=== PATIENT | female | born 1975 | race Caucasian/White ===

== ENCOUNTER 2019-03-31 03:15 | Emergency (ER) | payer OTHER ==
[~2019-03-31] VITALS: Ht 160 cm; Wt 74.8 kg
[2019-03-31] MEDS ORDERED: LISINOPRIL2.5 MG PO (03:26)
[2019-03-31] MEDS ORDERED: OMEPRAZOLE 20 M20 M1 PO (03:27)
[2019-03-31] MEDS ORDERED: KAPSPARGO SPRIN50 MG PO (03:27)
[2019-03-31] MEDS ORDERED: DEPO-ESTRAD5 MG/1 ML IM (03:28)
[2019-03-31 04:03] LABS: HEMATOCRIT 49.3 % (37.0-47.0); HEMOGLOBIN 16.7 gm/dL (12.0-15.0); MCH 31.5 pg (26.0-34.0); MCV 92.6 fL (80.0-100.0); MPV 8.6 fl. (7.2-11.1); NUCLEATED RBCS 0 /100WBC; PLATELET COUNT* 285 thou/uL (150-400); RBC 5.32 mil/uL (4.20-5.00); RDW-CV 13.7 % (10.5-14.5)
[2019-03-31 04:04] LABS: URINE BILIRUBIN NEGATIVE (Negative); URINE BLOOD TRACE (Negative); URINE CLARITY CLEAR; URINE COLOR YELLOW; URINE GLUCOSE-RANDOM NEGATIVE (Negative); URINE KETONES TRACE (Negative); URINE LEUKOCYTES-REFLEX NEGATIVE (Negative); URINE NITRITE-REFLEX NEGATIVE (Negative); URINE PROTEIN 1+ (Negative); URINE SPECIFIC GRAVITY >= 1.030 (1.005-1.030); URINE UROBILINOGEN 0.2 E.U./dl (0.2-1.0)
[2019-03-31 04:12] LABS: CALCIUM 8.8 mg/dL (8.5-10.1)
[2019-03-31] MEDS ORDERED: CARAFATE1 GM PO (04:12)
[2019-03-31] MEDS ORDERED: PHENERGAN 25 MG25 M1 PO (04:12)
[2019-03-31 04:16] LABS: APTT 24.1 Seconds (25.0-31.3); INR 0.9; PROTIME 9.6 Seconds (9.20-11.50)
[2019-03-31 04:16] LABS: ALBUMIN 4.1 g/dL (3.4-5.0); TOTAL BILIRUBIN 0.5 mg/dL (<0.1-1.0); TOTAL PROTEIN 8.2 g/dL (6.4-8.2)
[2019-03-31 05:09] LABS: AMP/METHAMP Negative (Negative); BARBITURATES Negative (Negative); BENZODIAZEPINES Negative (Negative); COCAINE Negative (Negative); METHADONE Negative (Negative); OPIATES Negative (Negative); PCP Negative (Negative); THC Negative (Negative)
[2019-03-31 05:46] LABS: ABSOLUTE LYMPHOCYTES 0.3 thou/uL (0.8-5.3); ABSOLUTE MONOCYTES 0.2 thou/uL (0.0-1.2); ABSOLUTE NEUTROPHILS 8.6 thou/uL (1.6-8.1); PLATELET ESTIMATE ADEQUATE
[2019-03-31 05:47] LABS: ANISOCYTOSIS 1+; POIKILOCYTOSIS 1+
[2019-03-31 06:45] VITALS: BP 147/89
--- NOTE | 2019-03-31 16:57 | EKG ---
[place] [address] ELECTROCARDIOGRAM REPORT Name: RADHA RUSSELL Room: [facility]#: [id number] Admission: 03/31/19 Attend Phys: Discharge: 03/31/19 Date of : 71 Report #: [id number] THIS REPORT FOR: //name// [facility] ED Test Date: 2019-03-31 Test Time: 03:34:15 Pat Name: RADHA RUSSELL Department: Room: Gender: F Manager Hotel: [place] : 1975 Requested By: Acacia Lopez Order Number: [id number] MD: Patrick Hines Measurements Intervals [place] Rate: 128 P: 55 LA: 138 QRS: 37 QRSD: 76 T: -22 QT: 299 QTc: 437 Interpretive Statements Sinus tachycardia Consider right atrial enlargement Consider right ventricular hypertrophy Borderline T abnormalities, inferior leads No previous ECG available for comparison Electronically Signed On 03-31-2019 16:57:18 PROPERTIES SUPERVISOR by Patrick Hines [email or web address] <ELECTRONICALLY SIGNED> By: Patrick Hines MD, [facility] 03/31/19 [id number] Patrick Hines MD, FACC /EPI
== END 2019-03-31 06:45 | disposition home or self-care (01) ==
LOC: M.ERS 03:15
PROVIDERS: Personal Emergency Response Attendant
DX: K52.9 Noninfective gastroenteritis and colitis, unspecified (principal); K92.2 Gastrointestinal hemorrhage, unspecified; I10 Essential (primary) hypertension; K21.9 Gastro-esophageal reflux disease without esophagitis; Z79.899 Other long term (current) drug therapy

== ENCOUNTER → 2019-06-24 | Outpatient (CLI) | payer OTHER ==
[~2019-06-24] MED LIST: CARAFATE1 GM PO; DEPO-ESTRAD5 MG/1 ML IM; KAPSPARGO SPRIN50 MG PO; LISINOPRIL2.5 MG PO; OMEPRAZOLE 20 M20 M1 PO; PHENERGAN 25 MG25 M1 PO
== END ==
LOC: M.RAD 12:42
DX: Z12.31 Encounter for screening mammogram for malignant neoplasm of breast (principal)

== ENCOUNTER → 2019-06-30 | Outpatient (CLI) | payer OTHER | LOC: M.RAD 06-25 13:51 | DX: N63.10 Unspecified lump in the right breast, unspecified quadrant (principal); R92.2 Inconclusive mammogram ==